=== PATIENT | male | born 2000 | race Caucasian/White ===

== ENCOUNTER 2020-11-01 18:48 | Emergency (ER) | payer BC, SELFPAY ==
--- NOTE | 2020-11-01 18:54 | ED.GENADULT ---
HPI - General Adult General Chief complaint: Nausea/Vomiting/Diarrhea Stated complaint: stomach issues Time Seen by Provider: 11/01/20 19:04 Source: patient and RN notes reviewed Mode of arrival: ambulatory Limitations: no limitations History of Present Illness HPI narrative: 20-year-old male presents concern for intermittent diarrhea for 1 week. Reports he will have 1-2 diarrhea stools daily, the next day will have normal bowel movements and this pattern has occurred for approximately 1 week. He denies any vomiting, nausea, abdominal pain, headache, fever, body aches. Denies any known sick contacts. He denies any intervention. He denies bloody stool, tarry stool, urine changes. MD complaint: Diarrhea Related Data Home Medications Medication Instructions Recorded Confirmed antihemophil FVIII,full length 3,700 unit IV 3XW 11/01/20 11/01/20 [[facility] FS] Allergies Allergy/AdvReac Type Severity Reaction Status Date / Time Penicillins Allergy Mild Hives Verified 11/01/20 19:14 Review of Systems Review of Systems: Narrative: CONSTITUTIONAL: Denies malaise, chills, sweats, or fever. ENT: Denies rhinorrhea, congestion, sinus pain, otalgia or sore throat. CARDIOVASCULAR: Denies chest pain, palpitations, or edema. RESPIRATORY: Denies cough or dyspnea. GASTROINTESTINAL: Denies abdominal pain, nausea, vomiting, bloody, or mucous stools. Reports intermittent diarrhea GENITOURINARY: Denies dysuria or hematuria. MUSCULOSKELETAL: Denies myalgia. NEUROLOGIC: Denies headache. All systems reviewed & are unremarkable except as noted in HPI and below PMFSH Comments At time of signature, agree with nursing past medical, surgical, social and family history. There is no relevant family history pertinent to the presenting complaint Exam Narrative: Exam Narrative: GENERAL: Well-appearing, well-nourished, and in no acute distress. HEAD: Normocephalic. EYES: PERRLA, conjunctivae clear. NECK: Supple. No lymphadenopathy CHEST: Clear to auscultation. No respiratory distress. HEART: Regular rate and rhythm. ABDOMEN: Soft, nontender upon palpation, nondistended, normal active bowel sounds, no palpable or pulsatile masses, no guarding. SKIN: Warm, dry, no rash. NEURO: Alert and oriented x3. PSYCH: Normal mood and affect Course Course Emergency Course: Patient is aware of diagnosis, understands and agrees to treatment plan. Anticipatory guidance given. Patient agrees to follow-up as directed and is aware of reasons to seek care at the emergency department. Portions of this record may have been created with voice recognition software Vital Signs Vital signs: Vital Signs Temperature 99.2 F 11/01/20 18:59 Pulse Rate 82 11/01/20 18:59 Respiratory Rate 16 11/01/20 18:59 Blood Pressure 179/85 H 11/01/20 18:59 Pulse Oximetry 100 11/01/20 18:59 Temperature 99.2 F 11/01/20 18:59 Pulse Rate 82 11/01/20 18:59 Respiratory Rate 16 11/01/20 18:59 Blood Pressure 179/85 H 11/01/20 18:59 Pulse Oximetry 100 11/01/20 18:59 Reviewed. Medical Decision Making MDM Narrative Medical decision making narrative: No evidence of pancreatitis, AAA, cholecystitis, choledocholithiasis, cholangitis, mesenteric ischemia, small bowel obstruction, diverticulitis, colitis, appendicitis, or pelvic etiology such as ovarian/testicular torsion, TOA, or ectopic . Patient has no history of peptic ulcer, H. pylori, chronic aspirin NSAID or corticosteroid use, chronic alcohol use, no history of inflammatory bowel disease, no history of active abdominal infection or malignancy. Patient has no history of hernia or intra-abdominal surgeries, patient denies absence of flatus, constipation, melena, hematemesis. Patient denies post-prandial pain. No pain-out of proportion. Exam findings show no acute concerns or changes; patient is non-toxic appearing and is in no distress. Patient is appropriate for outpatient treatment and follow-up. V
[2020-11-01 18:59] VITALS: BP 179/85; PULSE 82; RESP 16; TEMP 37.3; O2SAT 100
[2020-11-01 19:20] VITALS: BP 150/78
== END 2020-11-01 19:20 | disposition home or self-care (01) ==
PROVIDERS: Emergency Provider Nurse Practitioner
DX: R19.7 Diarrhea, unspecified (principal); D66 Hereditary factor VIII deficiency
CPT/HCPCS: 99211; G0463